=== PATIENT | female | born 1995 | race American Indian/Alaskan Native ===

== ENCOUNTER 2016-12-30 07:32 | Emergency (ER) | payer OTHER ==
[2016-12-30 07:55] VITALS: BMI 22.5
[2016-12-30 07:59] VITALS: RESP 18; TEMP 97.9
[2016-12-30] MEDS ORDERED: Sodium Chloride 0.9% 1,000 ML IV STA (08:00)
[2016-12-30] MEDS ORDERED: Alum-Mag Hydrox-Simethicone Susp (30 mL) PO STA (08:10)
[2016-12-30 08:20] LABS: ADD MANUAL DIFF? NO
--- NOTE | 2016-12-30 08:21 | ED PDOC ---
Arrival/HPI - General Chief Complaint: GI Problem Time Seen by Provider: 12/30/16 07:46 Historian: Patient - History of Present Illness Narrative History of Present Illness (Text): 12/30/16 08:07 A 21 year old female presents to the emergency department complaining of a "stomach virus" for the past 4 days. Patient reports having non bloody water diarrhea, nausea, generalized weakness and mild abdominal discomfort. She describes the abdominal pain as discomfort consistent with need to have a bowel movement, which is relieved for a short period of time after having a bowel movement. Patient denies any fever, vomiting, urinary symptoms, vaginal bleeding or discharge. Denies recent use of antibiotics or recent travel. 12/30/16 09:18 Time/Duration: Other (4 days) Symptom Onset: Sudden Symptom Course: Unchanged Quality: Other Activities at Onset: Rest Context: Home Past Medical History - Provider Review Nursing Documentation Reviewed: Yes - Infectious Disease Hx of Infectious Diseases: None - Psychiatric Hx Substance Use: No - Anesthesia Hx Anesthesia: No Family/Social History - Physician Review Nursing Documentation Reviewed: Yes Family/Social History: Unknown Family HX Smoking Status: Never Smoked Hx Alcohol Use: No Hx Substance Use: No Allergies/Home Meds Allergies/Adverse Reactions: Allergies No Known Allergies Allergy (Verified 12/30/16 07:55) Review of Systems - Review of Systems Constitutional: Fatigue. absent: Weight Change, Fevers Eyes: absent: Vision Changes ENT: absent: Tinnitus, TMJ Pain, Voice Changes, Sore Throat, Rhinorrhea Respiratory: absent: SOB, Cough Cardiovascular: absent: Chest Pain, Palpitations, Edema Gastrointestinal: Abdominal Pain, Diarrhea, Nausea. absent: Vomiting Genitourinary Female: absent: Dysuria, Frequency, Hematuria, Urine Output Changes, Vaginal Bleeding, Vaginal Discharge Musculoskeletal: absent: Back Pain, Neck Pain Skin: absent: Rash Neurological: absent: Headache Endocrine: absent: Polyuria Psychiatric: absent: Depression Physical Exam Vital Signs Reviewed: Yes Vital Signs Temp Pulse Resp BP Pulse Ox 12/30/16 09:18 64 18 122/76 98 12/30/16 07:57 97.9 F 61 18 119/70 100 Temperature: Afebrile Blood Pressure: Normal Pulse: Regular Respiratory Rate: Normal Appearance: Positive for: Well-Appearing, Non-Toxic, Comfortable Pain Distress: None Mental Status: Positive for: Alert and Oriented X 3 - Systems Exam Head: Present: Atraumatic, Normocephalic Pupils: Present: PERRL Extroacular Muscles: Present: EOMI Conjunctiva: Present: Normal Mouth: Present: Moist Mucous Membranes Pharnyx: Present: Normal. No: ERYTHEMA, EXUDATE, TONSILS ENLARGED, Peritonsilar Swelling, Uvular Deviation, Muffled/Hoarse Voice, Str[place], Soft Palate/Uvular Edema Neck: Present: Normal Range of Motion Respiratory/Chest: Present: Clear to Auscultation, Good Air Exchange. No: Respiratory Distress, Accessory Muscle Use Cardiovascular: Present: Regular Rate and Rhythm, Normal S1, S2. No: Murmurs Abdomen: Present: Normal Bowel Sounds. No: Tenderness, Distention, Peritoneal Signs, Rebound, Guarding Back: Present: Normal Inspection. No: CVA Tenderness Upper Extremity: Present: Normal Inspection. No: Cyanosis, Edema Lower Extremity: Present: Normal Inspection. No: Edema Neurological: Present: GCS=15, CN II-XII Intact, Speech Normal Skin: Present: Warm, Dry, Normal Color. No: Rashes Psychiatric: Present: Alert, Oriented x 3, Normal Insight, Normal Concentration Medical Decision Making ED Course and Treatment: 12/30/16 08:07 Impression: A 21 year old female with diarrhea, nausea and fatigue. She is also requesting a work note as she has not been to work in last 3 days. Differential Diagnosis include but are not limited to: vs. UTI vs. pancreatitis vs. gastritis Plan: -- Labs -- Urinalysis -- Maalox, Pepcid, Zofran and IV Fluids -- Reassess and disposition Progress Notes: 12/30/16 09:03 CMP, CBC and lipase are grossly normal. She is not . UA shows yeast. Patient denies symptoms and will not treat if asymptomatic. Instructed on use of OTC medication if she develops symptoms consistent with yeast infection. UA positive for leukocytes and wbc. Will dc with antibiotics after giving first dose in ED. Patient is tolerating po and well appearing. She has soft NT/ND abdomen. She has normal vitals and reports that she feels comfortable going home. Will give note to return on Wednesday (today and tmrw off work as she is not working Wednesday) - Lab Interpretations Lab Results: 12/30/16 08:05 12/30/16 08:05 Lab Results 12/30/16 08:15: Urine Color Yellow, Urine Appearance Clear, Urine pH 6.0, Ur Specific [place] 1.025, Urine Protein Negative, Urine Glucose (UA) Negative, Urine Ketones Negative, Urine Blood Negative, Urine Nitrate Negative, Urine Bilirubin Negative, Urine Urobilinogen 0.2, Ur Leukocyte Esterase Small H, Urine RBC 0 - 2, Urine WBC 10 - 15, Ur Epithelial Cells 6 - 8, Amorphous Sediment Few, Urine Bacteria Many, Urine Other Uyeast 12/30/16 08:05: Sodium 139, Potassium 4.0, Chloride 108 H, Carbon Dioxide 24, Anion Gap 11, BUN 13, Creatinine 0.7, Est GFR ( Amer) > 60, Est GFR (Non- Af Amer) > 60, Random Glucose 67 L, Calcium 9.0, Phosphorus 3.9, Magnesium 1.7, Total Bilirubin 0.6, AST 22, ALT 26, Alkaline Phosphatase 51, Total Protein 7.5 , Albumin 4.1, Globulin 3.4, Albumin/Globulin Ratio 1.2, Lipase 45 12/30/16 08:05: WBC 3.3 L, RBC 4.26, Hgb 12.5, Hct 37.5, MCV 88.0, MCH 29.3, MCHC 33.3, RDW 13.3, Plt Count 217, MPV 11.3 H, Gran % 50.1, Lymph % (Auto) 36.7 H, [place] % (Auto) 12.3 H, Eos % (Auto) 0.6 L, Baso % (Auto) 0.3, Gran # 1.66 , Lymph # 1.2, [place] # 0.4, Eos # 0.0, Baso # 0.01 I have reviewed the lab results: Yes - Medication Orders Current Medication Orders: Discontinued Medications Al Hydrox/Mg Hydrox/Simethicone (Maalox Plus 30 Ml) 30 ml PO STAT STA Stop: 12/30/16 08:11 Last Admin: 12/30/16 08:52 Dose: 30 ml Famotidine (Pepcid) 20 mg IVP STAT STA Stop: 12/30/16 08:11 Last Admin: 12/30/16 08:53 Dose: 20 mg Sodium Chloride (Sodium Chloride 0.9%) 1,000 mls @ 999 mls/hr IV .Q1H1M STA Stop: 12/30/16 09:00 Last Admin: 12/30/16 08:52 Dose: 999 mls/hr Nitrofurantoin Macrocrystals (Macrobid) 100 mg PO STAT STA Stop: 12/30/16 09:07 Last Admin: 12/30/16 09:14 Dose: 100 mg Ondansetron HCl (Zofran Inj) 4 mg IVP STAT STA Stop: 12/30/16 08:01 Last Admin: 12/30/16 08:53 Dose: 4 mg - Scribe Statement The provider has reviewed the documentation as recorded by the Pedro Luis Clements Provider Ariesibe Attestation: All medical record entries made by the Pedro Luis were at my direction and personally dictated by me. I have reviewed the chart and agree that the record accurately reflects my personal performance of the history, physical exam, medical decision making, and the department course for this patient. I have also personally directed, reviewed, and agree with the discharge instructions and disposition. Disposition/Present on Arrival - Present on Arrival Any Indicators Present on Arrival: No History of DVT/PE: No History of Uncontrolled Diabetes: No Urinary Catheter: No History of Decub. Ulcer: No History Surgical Site Infection Following: None - Disposition Have Diagnosis and Disposition been Completed?: Yes Diagnosis: Diarrhea, UTI (urinary tract infection) Disposition: HOME/ ROUTINE Disposition Time: 09:04 Patient Plan: Discharge Patient Problems: Current Active Problems Problem Status Onset Diarrhea Acute UTI (urinary tract infection) Acute Condition: GOOD Discharge Instructions (ExitCare): Urinary Tract Infection in Women (ED), Acute Diarrhea (ED) Additional Instructions: Follow up with PMD within 2 days. Increase fluids. Take full course of antibiotics. Return to ED if condition worsens. Prescriptions: Nitrofurantoin Macrocrystals [Macrobid] 100 mg PO BID #9 cap Referrals: Kolton Sanchez, [Primary Care Provider] - Follow up with primary Forms: WORK NOTE
[2016-12-30 08:23] LABS: BASO # 0.01 K/mm3 (0.0-2.0); BASO % 0.3 % (0.0-3.0); EOS % 0.6 % (1.5-5.0); GRAN # 1.66 (1.4-6.5); GRAN % 50.1 % (50.0-68.0); HEMATOCRIT 37.5 % (36.0-48.0); LYMPH # 1.2 (1.2-3.4); LYMPH % 36.7 % (22.0-35.0); MEAN CORPUSCULAR HEMOGLOBIN 29.3 pg (25.0-35.0); MEAN CORPUSCULAR HGB CONC 33.3 g/dl (31.0-37.0); MEAN PLATELET VOLUME 11.3 fl (7.0-11.0); MONO # 0.4 (0.1-0.6); MONO % 12.3 % (1.0-6.0); PLATELET COUNT 217 10^3/uL (120.0-450.0); RED CELL DISTRIBUTION WIDTH 13.3 % (11.5-14.5); WHITE BLOOD COUNT 3.3 10^3/ul (4.5-11.0)
[2016-12-30 08:33] LABS: ALB/GLOB RATIO 1.2 (1.1-1.8); ALKALINE PHOSPHATASE 51 U/L (38-133); ALT/SGPT 26 U/L (7-56); AST/SGOT 22 U/L (15-39); BILIRUBIN,TOTAL 0.6 mg/dL (0.2-1.3); BLOOD UREA NITROGEN 13 mg/dL (7-21); CARBON DIOXIDE 24 mmol/L (21-33); CHLORIDE 108 mmol/L (98-107); GFR AFRICAN-AMERICAN > 60; GLUCOSE,RANDOM 67 mg/dL (70-110); LIPASE 45 U/L (23-300); MAGNESIUM 1.7 mg/dL (1.7-2.2); PHOSPHOROUS 3.9 mg/dL (2.5-4.5); SODIUM 139 mmol/L (132-148); TOTAL PROTEIN 7.5 g/dL (5.8-8.3)
[2016-12-30 08:37] LABS: URINE BILIRUBIN NEGATIVE (NEGATIVE); URINE BLOOD NEGATIVE (NEGATIVE); URINE GLUCOSE (UA) NEGATIVE (NEGATIVE); URINE KETONE NEGATIVE (NEGATIVE); URINE LEUKOCYTE ESTERASE SMALL Leu/uL (NEGATIVE); URINE PROTEIN NEGATIVE mg/dL (<30 mg/dL); URINE UROBILINOGEN 0.2 E.U./dL (<1 E.U./dL)
[2016-12-30 08:49] LABS: URINE APPEARANCE CLEAR (CLEAR); URINE COLOR YELLOW (YELLOW)
[2016-12-30 08:57] LABS: URINE BACTERIA MANY (NEG); URINE RBC 0 - 2 /hpf (0-2)
[2016-12-30 08:58] LABS: URINE AMORPHOUS SEDIMENT FEW
[2016-12-30 09:18] VITALS: BP 122/76; PULSE 64; O2SAT 98
== END 2016-12-30 09:21 | disposition home or self-care (01) ==
LOC: ED 07:32
DX: N39.0 Urinary tract infection, site not specified (principal); R19.7 Diarrhea, unspecified
CPT/HCPCS: 80053; 81001; 83690; 83735; 84100; 85025; 87086; 96374; 96375; 99284; J2405; J7040

== ENCOUNTER 2017-08-20 09:30 | Emergency (ER) | payer OTHER ==
[2017-08-20 09:31] VITALS: BMI 22.5
[2017-08-20 09:54] VITALS: RESP 18; TEMP 98.9; O2SAT 100
[2017-08-20 10:44] LABS: URINE BILIRUBIN NEGATIVE (NEGATIVE); URINE BLOOD SMALL (NEGATIVE); URINE GLUCOSE (UA) NEGATIVE (NEGATIVE); URINE LEUKOCYTE ESTERASE MODERATE Leu/uL (NEGATIVE); URINE NITRATE NEGATIVE (NEGATIVE); URINE PROTEIN TRACE mg/dL (<30 mg/dL); URINE UROBILINOGEN 0.2 E.U./dL (<1 E.U./dL)
[2017-08-20 10:46] LABS: URINE APPEARANCE SL CLOUDY (CLEAR); URINE COLOR YELLOW (YELLOW)
[2017-08-20 10:55] LABS: URINE BACTERIA FEW (NEG); URINE RBC 0 - 2 /hpf (0-2); URINE WBC TNTC /hpf (0-6)
[2017-08-20] MEDS ORDERED: cefTRIAXone (Rocephin) 250 mg Inj IM STA (10:59)
--- NOTE | 2017-08-20 11:00 | ED PDOC ---
Arrival/HPI - General Chief Complaint: Abdominal Pain Time Seen by Provider: 08/20/17 10:11 Historian: Patient - History of Present Illness Narrative History of Present Illness (Text): 08/20/17 22 YO female w/o significant PMHx come in for evaluation of diffuse lower abdominal pain gradually developed for past few days associated with vaginal discharges, pain and frequency on urination. Pt admits, prior to onset of current sx had unprotected sex. Otherwise, pt denies fever, chills, sore throat , cough, N/V/D, back pain, hematuria, denies previous hx of STD. Ambulate to Ed for evaluation, not in any apparent distress. Past Medical History - Provider Review Nursing Documentation Reviewed: Yes - Travel History Have you recently traveled outside [place] w/in the past 3 mons?: No - Past History Past History: No Previous - Infectious Disease Hx of Infectious Diseases: None - Psychiatric Hx Substance Use: No - Anesthesia Hx Anesthesia: No Hx Anesthesia Reactions: No Hx Malignant Hyperthermia: No Family/Social History - Physician Review Nursing Documentation Reviewed: Yes Family/Social History: No Known Family HX Smoking Status: Never Smoked Hx Alcohol Use: No Hx Substance Use: No Allergies/Home Meds Allergies/Adverse Reactions: Allergies No Known Allergies Allergy (Verified 12/30/16 07:55) Review of Systems - Review of Systems Constitutional: Normal Eyes: Normal ENT: Normal Respiratory: Normal Cardiovascular: Normal Gastrointestinal: Abdominal Pain. absent: Nausea, Vomiting Genitourinary Female: Dysuria, Frequency, Vaginal Discharge. absent: Hematuria Musculoskeletal: Normal Skin: Normal Neurological: Normal Endocrine: Normal Hemo/Lymphatic: Normal Psychiatric: Normal Physical Exam Vital Signs Reviewed: Yes Vital Signs Temp Pulse Resp BP Pulse Ox 08/20/17 11:00 66 18 127/64 100 08/20/17 09:31 98.9 F 65 18 129/62 100 Temperature: Afebrile Blood Pressure: Normal Pulse: Regular Respiratory Rate: Normal Appearance: Positive for: Well-Appearing, Non-Toxic, Comfortable Pain Distress: Mild Mental Status: Positive for: Alert and Oriented X 3 - Systems Exam Head: Present: Normocephalic Conjunctiva: Present: Normal Mouth: Present: Moist Mucous Membranes Pharnyx: No: ERYTHEMA, EXUDATE, TONSILS ENLARGED Neck: Present: Trachea Midline. No: Meningeal Signs Respiratory/Chest: Present: Clear to Auscultation, Good Air Exchange. No: Respiratory Distress, Accessory Muscle Use Cardiovascular: Present: Regular Rate and Rhythm, Normal S1, S2. No: Murmurs Abdomen: Present: Normal Bowel Sounds. No: Tenderness, Distention, Peritoneal Signs Back: No: CVA Tenderness Upper Extremity: Present: Normal ROM Lower Extremity: Present: Normal ROM Neurological: Present: GCS=15, Speech Normal Skin: Present: Warm, Dry, Normal Color. No: Rashes Psychiatric: Present: Alert, Oriented x 3 Medical Decision Making ED Course and Treatment: 08/20/17 On re-evaluation, pt is afebrile, hemodynamicaly stable. Non-toxic. Tolerate Po well in ED. Neck: SUpple, (-) meningeal sign ENT: no acute findings Lungs: CTA B/L, BS equal B/L Abd: benign, (-) guarding, (-) rebound. Back: (-) CVA tenderness. UA results review and c./w UTI. UCX, GC probe- pending Pt was offered and accepted tx for possible STD. pt advised and encourage partner tx. ref. to f/u with RADIOLOGY SPECIALIST in 2-3 days for re-eval - Lab Interpretations Lab Results: Lab Results 08/20/17 10:39: Urine Color Yellow, Urine Appearance Sl cloudy, Urine pH 6.0, Ur Specific [place] 1.025, Urine Protein Trace H, Urine Glucose (UA) Negative, Urine Ketones Negative, Urine Blood Small H, Urine Nitrate Negative, Urine Bilirubin Negative, Urine Urobilinogen 0.2, Ur Leukocyte Esterase Moderate H, Urine RBC 0 - 2, Urine WBC Tntc, Ur Epithelial Cells 10 - 12, Urine Bacteria Few - Medication Orders Current Medication Orders: Discontinued Medications Azithromycin (Zithromax) 1,000 mg PO STAT STA PRN Reason: Protocol Stop: 08/20/17 11:00 Last Admin: 08/20/17 11:44 Dose: 1,000 mg Ceftriaxone Sodium (Rocephin) 250 mg IM STAT STA PRN Reason: Protocol Stop: 08/20/17 11:00 Last Admin: 08/20/17 11:44 Dose: 250 mg IM Administration Charges Document 08/20/17 11:44 EQ (Rec: 08/20/17 11:44 EQ [id number]) Injection Site MAR Injection Site Right Vastus Lateralis Charges for Administration # of IM Administrations 1 Disposition/Present on Arrival - Present on Arrival Any Indicators Present on Arrival: No History of DVT/PE: No History of Uncontrolled Diabetes: No Urinary Catheter: No History of Decub. Ulcer: No History Surgical Site Infection Following: None - Disposition Have Diagnosis and Disposition been Completed?: Yes Diagnosis: UTI (urinary tract infection), STD (sexually transmitted disease) Disposition: HOME/ ROUTINE Disposition Time: 11:00 Patient Plan: Discharge Patient Problems: Current Active Problems Problem Status Onset UTI (urinary tract infection) Acute STD (sexually transmitted disease) Acute Condition: STABLE Discharge Instructions (ExitCare): Urinary Tract Infection in Women (ED), Sexually Transmitted Diseases (ED), Safe Sex (ED) Additional Instructions: TAKE MEDICATION PRESCRIBED ENCOURAGE FLUIDS ENCOURAGE PARTNER(S) TO BE CHECKED AND TREATED NEED PRACTICE SAFE SEX FOLLOW UP WITH RADIOLOGY SPECIALIST IN2 -3 DAYS FOR RE-EVALUATION. RETURN TO E IF NAY WORSENING R O NEW CHANGES. Prescriptions: Doxycycline Hyclate 100 mg PO BID #14 capsule Referrals: Kolton Sanchez, [Primary Care Provider] - Follow up with primary Forms: Measy (A[place]ijani)
[2017-08-20 12:04] VITALS: BP 124/68; PULSE 64
== END 2017-08-20 12:21 | disposition home or self-care (01) ==
LOC: ED 09:30
DX: N39.0 Urinary tract infection, site not specified (principal); A64 Unspecified sexually transmitted disease
CPT/HCPCS: 81001; 87086; 87181; 87491; 87591; 96372; 99283; J0696